=== PATIENT | female | born 1990 ===

== ENCOUNTER 2023-05-31 09:45 | Outpatient (CLI) | payer OTHER | END 2023-05-31 09:48 | disposition home or self-care (01) | LOC: PRENATAL 09:45 | PROVIDERS: ATTEND Obstetrics & Gynecology Maternal & Fetal Medicine | DX: O35.9XX0 Maternal care for (suspected) fetal abnormality and damage, unspecified, not applicable or unspecified (principal); O35.3XX0 Maternal care for (suspected) damage to fetus from viral disease in mother, not applicable or unspecified; O44.00 Complete placenta previa NOS or without hemorrhage, unspecified trimester ==

== ENCOUNTER 2023-08-22 13:58 | Outpatient (CLI) | payer OTHER | END 2023-08-22 14:00 | disposition home or self-care (01) | LOC: PRENATAL 13:58 | PROVIDERS: ATTEND Obstetrics & Gynecology Maternal & Fetal Medicine | DX: O26.849 Uterine size-date discrepancy, unspecified trimester (principal); O36.8199 Decreased fetal movements, unspecified trimester, other fetus; Z3A.32 32 weeks gestation of pregnancy ==